=== PATIENT | female | born 1970 | race Caucasian/White ===

== ENCOUNTER 2018-02-09 16:00 | Outpatient (CLI) | payer BC | END 2018-02-09 16:01 | disposition home or self-care (01) | LOC: BICMAMMO 16:00 | PROVIDERS: ATTEND Family Medicine | DX: Z12.31 Encounter for screening mammogram for malignant neoplasm of breast (principal) | CPT/HCPCS: 77063; 77067 ==

== ENCOUNTER 2021-12-16 22:29 | Inpatient (IN) | payer BC ==
[2021-12-17 00:18] VITALS: BMI 24.2
[2021-12-17] MEDS ORDERED: Oseltamivir 75 MG CAP PO SCH (01:45)
[2021-12-17] MEDS: Sodium Chloride 0.9% 1,000 ML IV SCH ×3 (01:53→16:31)
[2021-12-17 07:19] LABS: Hemoglobin 10.4 g/dL (12.0-16.0); Mean Corpuscular HGB CONC 33.3 g/dL (32.0-36.0); Mean Corpuscular Hemoglobin 31.1 pg (27.0-31.0); Mean Corpuscular Volume 93.3 fL (78.0-98.0); Mean Platelet Volume 8.3 fL (7.4-10.4); Platelet Count 160 thou/uL (130-400); RBC Distribution Width 11.8 % (11.5-14.5); Red Blood Cell (RBC) Count 3.35 mill/uL (4.20-5.40); White Blood Cell (WBC) Count 13.4 thou/uL (4.8-10.8)
[2021-12-17 07:27] LABS: ALT (SGPT) 21 U/L (8-55); AST (SGOT) 31 U/L (5-34); Albumin 2.7 g/dL (3.5-5.0); Alkaline Phosphatase 63 U/L (40-110); Bilirubin, Direct 0.3 mg/dL (0.1-0.3); Bilirubin, Total 0.5 mg/dL (0.2-1.2); Protein, Total 4.9 g/dL (6.0-8.3)
[2021-12-17 07:28] LABS: Anion Gap 11 mmol/L (10-20); BUN (Urea Nitrogen) 17 mg/dL (7.0-18.7); Calc. Creatinine Clearance 80 mL/min (70-130); Calcium 7.6 mg/dL (7.8-10.44); Carbon Dioxide 24 mmol/L (22-29); Chloride 100 mmol/L (98-107); Estimated GFR 72; Glucose 103 mg/dL (70-105); Potassium 3.4 mmol/L (3.5-5.1); Sodium 132 mmol/L (136-145)
[2021-12-17] MEDS: Enoxaparin Sodium 40 MG/0.4 ML SYRINGE SC SCH (07:47)
[2021-12-17] MEDS: Bupropion 150 MG XL TAB PO SCH (07:48)
[2021-12-17] MEDS: Acetaminophen 325 MG TAB PO PRN ×2 (07:48→15:01)
[2021-12-17] MEDS: Escitalopram Oxalate 20 mg Tablet PO SCH (07:49)
[2021-12-17] MEDS: Oseltamivir 75 MG CAP PO SCH ×2 (07:49→20:29)
[2021-12-17] MEDS: Montelukast Sodium 10 mg Tablet PO SCH (07:49)
[2021-12-17 08:15] LABS: MDiff Complete? YES
[2021-12-17 08:16] LABS: Band 48 % (5-11); Lymphocytes 8 % (21-51); Monocytes 6 % (0-10); Neutrophil 38 % (42-75); Platelet Morphology Comment Appears Adequate; Polychromasia SLIGHT = 2-3 cells (100X) (0-2/hpf); Reflex for Review?? YES; Toxic Granulation SLIGHT
[2021-12-17] MEDS: Benzonatate 100 MG CAP PO SCH ×2 (11:36→20:28)
[2021-12-17] MEDS: Ibuprofen 600 MG TAB PO PRN (15:00)
[2021-12-17] MEDS: Albuterol Sulfate 2.5 mg/3 ml Neb NEB PRN (16:55)
[2021-12-17] MEDS ORDERED: cefTRIAXone\\ROCEPHIN 1 GM in Sodium Chloride 0.9% 100 ML IVPB SCH (18:00)
[2021-12-17] MEDS ORDERED: Pharmacy to Dose ABXS IVPB PRN (18:28)
[2021-12-17] MEDS ORDERED: Vancomycin 1 GM in Premix Bag 1 BAG IVPB SCH (18:30)
[2021-12-17] MEDS ORDERED: Vancomycin 1.5 GRAM/300 ML BAG 1.5 GM in Premix Bag 1 BAG IVPB SCH (20:00)
[2021-12-17] MEDS: Cefepime 1 GM in Sodium Chloride 0.9% 100 ML IVPB SCH (20:27)
[2021-12-18] MEDS: Sodium Chloride 0.9% 1,000 ML IV SCH ×2 (01:35→17:49)
[2021-12-18] MEDS: Ibuprofen 600 MG TAB PO PRN (01:57)
[2021-12-18 06:51] LABS: Hemoglobin 9.2 g/dL (12.0-16.0); Mean Corpuscular HGB CONC 33.2 g/dL (32.0-36.0); Mean Corpuscular Hemoglobin 30.8 pg (27.0-31.0); Mean Corpuscular Volume 92.7 fL (78.0-98.0); Mean Platelet Volume 7.5 fL (7.4-10.4); Platelet Count 168 thou/uL (130-400); RBC Distribution Width 11.8 % (11.5-14.5); Red Blood Cell (RBC) Count 2.99 mill/uL (4.20-5.40); White Blood Cell (WBC) Count 9.5 thou/uL (4.8-10.8)
[2021-12-18 07:06] LABS: Anion Gap 11 mmol/L (10-20); BUN (Urea Nitrogen) 13 mg/dL (7.0-18.7); Calc. Creatinine Clearance 97 mL/min (70-130); Calcium 7.5 mg/dL (7.8-10.44); Carbon Dioxide 20 mmol/L (22-29); Chloride 111 mmol/L (98-107); Estimated GFR 90; Glucose 86 mg/dL (70-105); Sodium 139 mmol/L (136-145)
[2021-12-18 07:24] LABS: Band 23 % (5-11); Lymphocytes 16 % (21-51); MDiff Complete? YES; Monocytes 8 % (0-10); Neutrophil 53 % (42-75); Platelet Morphology Comment Appears Adequate; Polychromasia SLIGHT = 2-3 cells (100X) (0-2/hpf); Potassium 2.7 mmol/L (3.5-5.1)
[2021-12-18] MEDS: Cefepime 1 GM in Sodium Chloride 0.9% 100 ML IVPB SCH ×2 (07:56→22:18)
[2021-12-18] MEDS: Enoxaparin Sodium 40 MG/0.4 ML SYRINGE SC SCH (07:57)
[2021-12-18] MEDS: Benzonatate 100 MG CAP PO SCH ×3 (07:58→20:23)
[2021-12-18] MEDS: Escitalopram Oxalate 20 mg Tablet PO SCH (07:58)
[2021-12-18] MEDS: Montelukast Sodium 10 mg Tablet PO SCH (07:58)
[2021-12-18] MEDS: Oseltamivir 75 MG CAP PO SCH ×2 (07:58→20:23)
[2021-12-18] MEDS: Bupropion 150 MG XL TAB PO SCH (07:58)
[2021-12-18] MEDS: Potassium Chloride 20 MEQ TAB PO SCH ×3 (08:50→16:03)
[2021-12-18] MEDS: Vancomycin HCl 750 MG in Sodium Chloride 0.9% 250 ML 250 ML IVPB SCH ×2 (08:50→20:22)
[2021-12-18] MEDS: Albuterol Sulfate 2.5 mg/3 ml Neb NEB PRN (09:14)
[2021-12-18] MEDS: Ketorolac Tromethamine 30 MG/ML VIAL IVP PRN ×3 (10:21→22:35)
[2021-12-18] MEDS: Ondansetron PF 4 MG/2 ML Vial IVP PRN (21:03)
[2021-12-19] MEDS: Sodium Chloride 0.9% 1,000 ML IV SCH (06:28)
[2021-12-19 07:52] LABS: Band 12 % (5-11); Hemoglobin 9.7 g/dL (12.0-16.0); Lymphocytes 24 % (21-51); MDiff Complete? YES; Mean Corpuscular HGB CONC 32.7 g/dL (32.0-36.0); Mean Corpuscular Hemoglobin 30.3 pg (27.0-31.0); Mean Corpuscular Volume 92.7 fL (78.0-98.0); Mean Platelet Volume 7.5 fL (7.4-10.4); Metamyelocyte 1 % (0-0); Monocytes 6 % (0-10); Myelocyte 3 % (0-0); Neutrophil 54 % (42-75); Nucleated RBC 1 % (0); Platelet Count 235 thou/uL (130-400); Platelet Morphology Comment Appears Adequate; Polychromasia MODERATE = 3-4 cells (100X) (0-2/hpf); RBC Distribution Width 12.4 % (11.5-14.5); Red Blood Cell (RBC) Count 3.19 mill/uL (4.20-5.40); White Blood Cell (WBC) Count 8.6 thou/uL (4.8-10.8)
[2021-12-19 08:00] LABS: Anion Gap 13 mmol/L (10-20); BUN (Urea Nitrogen) 7 mg/dL (7.0-18.7); Calc. Creatinine Clearance 108 mL/min (70-130); Calcium 7.8 mg/dL (7.8-10.44); Carbon Dioxide 19 mmol/L (22-29); Chloride 114 mmol/L (98-107); Estimated GFR 102; Glucose 84 mg/dL (70-105); Potassium 4.1 mmol/L (3.5-5.1); Sodium 142 mmol/L (136-145)
[2021-12-19] MEDS: Vancomycin HCl 750 MG in Sodium Chloride 0.9% 250 ML 250 ML IVPB SCH ×2 (08:34→21:21)
[2021-12-19] MEDS: Enoxaparin Sodium 40 MG/0.4 ML SYRINGE SC SCH (08:38)
[2021-12-19] MEDS: Bupropion 150 MG XL TAB PO SCH (08:39)
[2021-12-19] MEDS: Oseltamivir 75 MG CAP PO SCH ×2 (08:39→21:20)
[2021-12-19] MEDS: Montelukast Sodium 10 mg Tablet PO SCH (08:40)
[2021-12-19] MEDS: Benzonatate 100 MG CAP PO SCH ×3 (08:40→21:20)
[2021-12-19] MEDS: Escitalopram Oxalate 20 mg Tablet PO SCH (08:40)
[2021-12-19] MEDS: Cefepime 1 GM in Sodium Chloride 0.9% 100 ML IVPB SCH (11:46)
[2021-12-19] MEDS: Albuterol Sulfate 2.5 mg/3 ml Neb NEB PRN (12:47)
[2021-12-19] MEDS: Ondansetron PF 4 MG/2 ML Vial IVP PRN ×2 (12:48→23:35)
[2021-12-19 16:28] LABS: Strep pneumo Urine Ag POSITIVE (NEGATIVE)
[2021-12-19 16:29] LABS: Legionella Urinary Ag Negative (Negative)
[2021-12-19] MEDS: Ketorolac Tromethamine 30 MG/ML VIAL IVP PRN (23:36)
[2021-12-19] MEDS: Cefepime 2 GM in Sodium Chloride 0.9% 100 ML IVPB SCH (23:58)
[2021-12-20] MEDS: Ketorolac Tromethamine 30 MG/ML VIAL IVP PRN ×2 (07:45→14:35)
[2021-12-20 08:08] LABS: Anion Gap 13 mmol/L (10-20); BUN (Urea Nitrogen) 8 mg/dL (7.0-18.7); Calc. Creatinine Clearance 111 mL/min (70-130); Carbon Dioxide 20 mmol/L (22-29); Chloride 110 mmol/L (98-107); Estimated GFR 106; Glucose 83 mg/dL (70-105); Potassium 3.6 mmol/L (3.5-5.1); Sodium 139 mmol/L (136-145)
[2021-12-20 08:40] LABS: Hemoglobin 9.7 g/dL (12.0-16.0); MDiff Complete? YES; Mean Corpuscular HGB CONC 32.3 g/dL (32.0-36.0); Mean Corpuscular Volume 92.7 fL (78.0-98.0); Mean Platelet Volume 6.9 fL (7.4-10.4); Platelet Count 337 thou/uL (130-400); RBC Distribution Width 12.6 % (11.5-14.5); Red Blood Cell (RBC) Count 3.22 mill/uL (4.20-5.40); White Blood Cell (WBC) Count 9.9 thou/uL (4.8-10.8)
[2021-12-20 08:41] LABS: Band 8 % (5-11); Eosinophils 1 % (0-10); Lymphocytes 15 % (21-51); Metamyelocyte 4 % (0-0); Monocytes 4 % (0-10); Myelocyte 1 % (0-0); Neutrophil 66 % (42-75); Platelet Morphology Comment Appears Adequate; RBC Morphology Normal; Reactive Lymphocytes 1 % (0-10)
[2021-12-20] MEDS: Vancomycin HCl 750 MG in Sodium Chloride 0.9% 250 ML 250 ML IVPB SCH (09:01)
[2021-12-20] MEDS: Montelukast Sodium 10 mg Tablet PO SCH (09:09)
[2021-12-20] MEDS: Oseltamivir 75 MG CAP PO SCH ×2 (09:09→20:21)
[2021-12-20] MEDS: Benzonatate 100 MG CAP PO SCH ×3 (09:10→20:21)
[2021-12-20] MEDS: Escitalopram Oxalate 20 mg Tablet PO SCH (09:10)
[2021-12-20] MEDS: Enoxaparin Sodium 40 MG/0.4 ML SYRINGE SC SCH (09:10)
[2021-12-20] MEDS: Bupropion 150 MG XL TAB PO SCH (09:17)
[2021-12-20] MEDS: Cefepime 2 GM in Sodium Chloride 0.9% 100 ML IVPB SCH ×2 (11:52→22:02)
[2021-12-20] MEDS: Ondansetron PF 4 MG/2 ML Vial IVP PRN ×2 (14:36→22:20)
[2021-12-20] MEDS ORDERED: hydrALAZINE 20 MG/ML VIAL SLOW IVP PRN (16:46)
[2021-12-21 06:56] LABS: Hemoglobin 9.9 g/dL (12.0-16.0); Mean Corpuscular HGB CONC 32.8 g/dL (32.0-36.0); Mean Corpuscular Hemoglobin 30.1 pg (27.0-31.0); Mean Corpuscular Volume 91.6 fL (78.0-98.0); Mean Platelet Volume 6.6 fL (7.4-10.4); Platelet Count 408 thou/uL (130-400); RBC Distribution Width 12.6 % (11.5-14.5); Red Blood Cell (RBC) Count 3.28 mill/uL (4.20-5.40); White Blood Cell (WBC) Count 12.1 thou/uL (4.8-10.8)
[2021-12-21 07:25] LABS: Anion Gap 11 mmol/L (10-20); BUN (Urea Nitrogen) 6 mg/dL (7.0-18.7); CRP (Inflammatory) 4.82 mg/dL (= or < 0.5); Calc. Creatinine Clearance 114 mL/min (70-130); Calcium 8.2 mg/dL (7.8-10.44); Carbon Dioxide 25 mmol/L (22-29); Chloride 106 mmol/L (98-107); Estimated GFR 107; Glucose 81 mg/dL (70-105); Potassium 3.3 mmol/L (3.5-5.1); Sodium 139 mmol/L (136-145)
[2021-12-21 08:47] LABS: Band 8 % (5-11); Eosinophils 2 % (0-10); Lymphocytes 23 % (21-51); MDiff Complete? YES; Metamyelocyte 2 % (0-0); Monocytes 7 % (0-10); Myelocyte 4 % (0-0); Neutrophil 53 % (42-75); Platelet Morphology Comment Appears Increased; Polychromasia SLIGHT = 2-3 cells (100X) (0-2/hpf)
[2021-12-21] MEDS: Montelukast Sodium 10 mg Tablet PO SCH (10:32)
[2021-12-21] MEDS: Bupropion 150 MG XL TAB PO SCH (10:32)
[2021-12-21] MEDS: Benzonatate 100 MG CAP PO SCH ×3 (10:33→23:12)
[2021-12-21] MEDS: Oseltamivir 75 MG CAP PO SCH (10:33)
[2021-12-21] MEDS: Escitalopram Oxalate 20 mg Tablet PO SCH (10:33)
[2021-12-21] MEDS: Enoxaparin Sodium 40 MG/0.4 ML SYRINGE SC SCH (10:34)
[2021-12-21] MEDS: Acetaminophen 325 MG TAB PO PRN ×2 (10:40→17:19)
[2021-12-21] MEDS: Cefepime 2 GM in Sodium Chloride 0.9% 100 ML IVPB SCH (12:33)
[2021-12-21] MEDS: Ondansetron PF 4 MG/2 ML Vial IVP PRN (14:39)
[2021-12-21] MEDS ORDERED: cefTRIAXone\\ROCEPHIN 1 GM in Sodium Chloride 0.9% 100 ML IVPB SCH (16:00)
[2021-12-22] MEDS: Ondansetron PF 4 MG/2 ML Vial IVP PRN (01:33)
[2021-12-22 07:51] VITALS: BP 154/74; TEMP 98
[2021-12-22] MEDS: Montelukast Sodium 10 mg Tablet PO SCH (09:12)
[2021-12-22] MEDS: Bupropion 150 MG XL TAB PO SCH (09:12)
[2021-12-22] MEDS: Escitalopram Oxalate 20 mg Tablet PO SCH (09:13)
[2021-12-22] MEDS: Enoxaparin Sodium 40 MG/0.4 ML SYRINGE SC SCH (09:13)
[2021-12-22] MEDS: Benzonatate 100 MG CAP PO SCH (09:13)
[2021-12-22] MEDS: Acetaminophen 325 MG TAB PO PRN (09:18)
== END 2021-12-22 16:35 | disposition home or self-care (01) | DRG 193 ==
LOC: T4-B 23:20 → OBSVTOIN 23:20
PROVIDERS: ADMIT Internal Medicine; ATTEND Hospitalist
DX: J10.08 Influenza due to other identified influenza virus with other specified pneumonia (principal); J96.01 Acute respiratory failure with hypoxia; J15.4 Pneumonia due to other streptococci; J45.20 Mild intermittent asthma, uncomplicated; E87.6 Hypokalemia
CPT/HCPCS: 36415; 80048; 80076; 80202; 84145; 85025; 85060; 86140; 87040; 87449; 87899; 94640; J0360; J0692; J0696; J1650; J1885; J2405; J3370; J3490; J7050; J7611

== ENCOUNTER 2021-12-28 15:56 | Outpatient (CLI) | payer BC | END 2021-12-28 15:57 | disposition home or self-care (01) | LOC: SCSRAD 15:56 | PROVIDERS: ATTEND Family Medicine | DX: J11.00 Influenza due to unidentified influenza virus with unspecified type of pneumonia (principal) | CPT/HCPCS: 71046 ==

== ENCOUNTER 2022-11-30 14:07 | Outpatient (CLI) | payer BC | END 2022-11-30 14:08 | disposition home or self-care (01) | LOC: SCSRAD 14:07 | PROVIDERS: ATTEND Family Medicine | DX: R05.3 Chronic cough (principal); J18.9 Pneumonia, unspecified organism | CPT/HCPCS: 71046 ==

== ENCOUNTER 2023-07-27 11:14 | Outpatient (CLI) | payer BC | END 2023-07-27 11:15 | disposition home or self-care (01) | LOC: BICMAMMO 11:14 | PROVIDERS: ATTEND Nurse Practitioner Family | DX: Z12.31 Encounter for screening mammogram for malignant neoplasm of breast (principal); N64.89 Other specified disorders of breast | CPT/HCPCS: 77063; 77067 ==

== ENCOUNTER 2023-08-02 14:06 | Outpatient (CLI) | payer BC | END 2023-08-02 14:07 | disposition home or self-care (01) | LOC: BICMAMMO 14:06 | PROVIDERS: ATTEND Nurse Practitioner Family | DX: N64.89 Other specified disorders of breast (principal) | CPT/HCPCS: G0279 ==

== ENCOUNTER 2025-02-14 12:55 | Outpatient (CLI) | payer BC | END 2025-02-14 12:56 | disposition home or self-care (01) | LOC: BICMAMMO 12:55 | PROVIDERS: ATTEND Nurse Practitioner Family | DX: Z12.31 Encounter for screening mammogram for malignant neoplasm of breast (principal); R92.333 Mammographic heterogeneous density, bilateral breasts | CPT/HCPCS: 77063; 77067 ==